=== PATIENT | female | born 2000 | race African-American/Black ===

== ENCOUNTER 2020-10-02 09:33 | Emergency (ER) | payer OTHER ==
[2020-10-02 09:43] VITALS: BP 114/72; PULSE 84; TEMP 98.4; BMI 19.5
[2020-10-02] MEDS ORDERED: DEXAMETHASONE SOD PHOSPHATE 10 MG/1 ML VIAL ONE (10:11)
[2020-10-02] MEDS ORDERED: DEXAMETHASONE LIQUID 0.5 MG/5 ML PO ONE (10:12)
== END 2020-10-02 10:37 | disposition home or self-care (01) ==
LOC: JER 09:33 → JERFT 09:33
DX: J02.9 Acute pharyngitis, unspecified (principal); Z11.52 Encounter for screening for COVID-19
CPT/HCPCS: 87880; 99283-25; C9803; U0003; U0005

== ENCOUNTER 2021-04-05 20:12 | Emergency (ER) | payer OTHER ==
[2021-04-05 20:17] VITALS: BP 112/71; PULSE 84; TEMP 97; BMI 19.8
== END 2021-04-05 21:57 | disposition home or self-care (01) ==
LOC: JERFT 20:12
DX: S63.634A Sprain of interphalangeal joint of right ring finger, initial encounter (principal); W20.8XXA Other cause of strike by thrown, projected or falling object, initial encounter
CPT/HCPCS: 73130-TC-RT-FY; 99283-25

== ENCOUNTER 2022-09-07 19:24 | Emergency (ER) | payer OTHER ==
[2022-09-07] MEDS ORDERED: EPINEPHrine 1:1,000 1,000 MCG/ML ML SQ ONE (19:28)
[2022-09-07] MEDS ORDERED: EPINEPHrine/PF 1 MG/1 ML (1:1,000) AMPULE ONE (19:28)
[2022-09-07] MEDS ORDERED: methylPREDNISolone NA SUCC 125 MG/2 ML VIAL IVPUSH ONE (19:29)
[2022-09-07] MEDS ORDERED: SODIUM CHLORIDE 0.9% 500 ML INFUS.BAG IV ONE (19:30)
[2022-09-07] MEDS ORDERED: FAMOTIDINE 20 MG/50 ML IVPB 20 MG/50 ML MG IVPB ONE ×2 (19:30→19:39)
[2022-09-07] MEDS ORDERED: RACEPINEPHRINE IH SOL 2.25% 11.25 MG/0.5 ML VIAL NEB ONE (19:32)
[2022-09-07 19:36] VITALS: BMI 18.3
[2022-09-07] MEDS ORDERED: RACEPINEPHRINE IH SOL 2.25% 11.25 MG/0.5 ML VIAL IH ONE (19:37)
[2022-09-07] MEDS ORDERED: methylPREDNISolone NA SUCC 125 MG/2 ML VIAL ONE (19:38)
[2022-09-07] MEDS ORDERED: ACETAMINOPHEN 1000 MG/100 ML BAG IVPB ONE (23:05)
[2022-09-07] MEDS ORDERED: ACETAMINOPHEN INJECTION 100 ML IVPB ONE (23:15)
[2022-09-07 23:28] VITALS: BP 112/68; PULSE 90; RESP 18
[2022-09-07 23:31] VITALS: TEMP 98.5
[2022-09-08] MEDS ORDERED: KETOROLAC TROMETHAMINE 15 MG/ML VIAL IVPUSH ONE (00:59)
[2022-09-08] MEDS ORDERED: IBUPROFEN 400 MG TABLET (FP) PO ONE ×2 (02:36→02:38)
== END 2022-09-08 03:29 | disposition home or self-care (01) ==
LOC: JER 19:24
PROC: 3E033GC Introduction of Other Therapeutic Substance into Peripheral Vein, Percutaneous Approach (ICD-10-PCS; principal; 2022-09-07)
PROC: 3E033NZ Introduction of Analgesics, Hypnotics, Sedatives into Peripheral Vein, Percutaneous Approach (ICD-10-PCS; 2022-09-07)
PROC: 3E033GC Introduction of Other Therapeutic Substance into Peripheral Vein, Percutaneous Approach (ICD-10-PCS; 2022-09-07)
PROC: 3E033GC Introduction of Other Therapeutic Substance into Peripheral Vein, Percutaneous Approach (ICD-10-PCS; 2022-09-07)
PROC: 3E023GC Introduction of Other Therapeutic Substance into Muscle, Percutaneous Approach (ICD-10-PCS; 2022-09-07)
DX: T78.40XA Allergy, unspecified, initial encounter (principal); J02.9 Acute pharyngitis, unspecified; Z20.822 Contact with and (suspected) exposure to COVID-19
CPT/HCPCS: 0241U-QW; 87651; 93005; 93010; 99284-25

== ENCOUNTER 2023-10-28 23:50 | Emergency (ER) | payer OTHER ==
[2023-10-28 23:57] VITALS: BP 100/64; PULSE 99; RESP 18; TEMP 98.2; BMI 18.1
[2023-10-29] MEDS ORDERED: LIDOCAINE 5% TOPICAL PATCH ONE (00:38)
[2023-10-29] MEDS: LIDOCAINE 5% TOPICAL PATCH TP ONE (00:43)
[2023-10-29] MEDS ORDERED: KETOROLAC TROMETHAMINE 30 MG/1 ML VIAL ONE (01:12)
[2023-10-29] MEDS ORDERED: METHOCARBAMOL 500 MG TABLET ONE (01:12)
[2023-10-29] MEDS: KETOROLAC TROMETHAMINE 30 MG/1 ML VIAL IM ONE (01:16)
[2023-10-29] MEDS: METHOCARBAMOL 500 MG TABLET PO ONE (01:17)
[2023-10-29] MEDS ORDERED: LIDOCAINE PATCH REMOVAL MC ONE (12:00)
== END 2023-10-29 02:18 | disposition home or self-care (01) ==
LOC: JER 23:50
PROC: 3E0233Z Introduction of Anti-inflammatory into Muscle, Percutaneous Approach (ICD-10-PCS; principal; 2023-10-29)
DX: M54.2 Cervicalgia (principal); M54.6 Pain in thoracic spine
CPT/HCPCS: 84703; 99284-25

== ENCOUNTER 2024-12-04 10:15 | Emergency (ER) | payer OTHER ==
[2024-12-04 10:39] VITALS: BP 98/58; PULSE 92; RESP 18; TEMP 98.5; BMI 19.3
[2024-12-04] MEDS ORDERED: KETOROLAC TROMETHAMINE 30 MG/1 ML VIAL ONE (11:16)
[2024-12-04] MEDS ORDERED: ACETAMINOPHEN 500 MG TABLET (FP) ONE (11:16)
[2024-12-04] MEDS: ACETAMINOPHEN 500 MG TABLET (FP) PO ONE (11:22)
[2024-12-04] MEDS: KETOROLAC TROMETHAMINE 30 MG/1 ML VIAL IM ONE (11:23)
== END 2024-12-04 13:43 | disposition home or self-care (01) ==
LOC: JER 10:15 → JERFT 10:15
PROC: 3E0233Z Introduction of Anti-inflammatory into Muscle, Percutaneous Approach (ICD-10-PCS; principal; 2024-12-04)
DX: M54.2 Cervicalgia (principal); X50.1XXA Overexertion from prolonged static or awkward postures, initial encounter
CPT/HCPCS: 72125-TC; 84703; 99285-25